=== PATIENT | female | born 1955 | race Caucasian/White ===

== ENCOUNTER → 2016-06-03 | Outpatient (CLI) | payer BC ==
[~2016-06-03] MED LIST: ALPRAZOLAM0.25 MG PO; BENICAR HCT 40-1 TA1 PO; CLARITIN10 M2 PO; CLOPIDOGREL75 MG PO; HYDRALAZINE HCL25 MG PO; LINZESS290 MCG PO; LIPITOR PO; MIRALAX17 GM PO; MONTELUKAST SOD10 MG
--- NOTE | ~2016-06-03 | CT57 ---
[facility] A Service of [facility] RADIOLOGY TEXT RESULTS PATIENT: EMMY ROSA LOCATION: [facility] : 57 UNIT #: [id number] AGE: [address]: Jay Umanzor MD SEX: F ORDER DR: [id number] [facility] [address] [place]. [place], [place] [address] [id number] O MR#: [id number] Acc #: [id number] NAME: EMMY ROSA : 1955 SEX: F STUDY DATE/TIME: 06/03/2016 10:16 UNIT: [facility] ROOM: STUDY DESCRIPTION: CT Chest Wo Cont Attending Physician: Jay Umanzor M.D. Ordering Physician: Jay Umanzor M.D. Primary Care Physician: Jay Umanzor M.D. MEDICAL IMAGING REPORT This report is preliminary unless electronic signature is present EXAM CT chest INDICATIONS Pulmonary nodule. Restaging. TECHNIQUE CT of the thorax without contrast. Coronal and sagittal reconstructions were obtained. The CT exam was performed with one or more of the following radiation dose reduction techniques: automatic exposure control, adjustment of mA and/or kV according to patient size, and iterative reconstruction. COMPARISON CT chest dated 01/16/2016. FINDINGS No suspicious pulmonary nodules are identified on today's study. There is a linear area of atelectasis or scarring in the medial aspect of the right middle lobe. This area has diminished since the prior studies of 01/16/2016, 12/31/2015. No new pulmonary opacities. The heart and mediastinal contours are within normal. No enlarged mediastinal or hilar lymph nodes. Thoracic aorta is normal in caliber. Mild pectus excavatum deformity. Limited images of the upper abdomen were obtained. There are no significant abnormalities. Patient does have a stent within the left renal artery. IMPRESSION [facility] A Service of [facility] RADIOLOGY TEXT RESULTS PATIENT: EMMY ROSA LOCATION: [facility] : 57 UNIT #: [id number] AGE: [address]: Jay Umanzor MD SEX: F ORDER DR: 1. No significant abnormalities in the chest. 2. Small linear area of atelectasis or scarring in the medial right middle lobe has improved since the 01/16/2016 comparison. No new pulmonary opacities. Dictated by... Garrett Oglesby M.D. THIS IS AN ELECTRONICALLY VERIFIED REPORT Garrett Oglesby M.D. at 06/03/2016 4:25 PM RPC/guevara TD: 06/03/2016 15:11 JOB #: [id number] MEDICAL IMAGING REPORT Page 1 of 1 COPY
== END | disposition home or self-care (01) ==
LOC: CCAT 09:34
DX: R91.1 Solitary pulmonary nodule (principal); J98.4 Other disorders of lung
CPT/HCPCS: 71250